=== PATIENT | female | born 1990 | race Hispanic/Latino ===

== ENCOUNTER 2017-08-10 23:39 | Emergency (ER) | payer OTHER ==
[2017-08-11 00:35] VITALS: BMI 19.5
[2017-08-11 01:15] LABS: HEMOGLOBIN 10.9 g/dL (12.0-16.0); MEAN CELL VOLUME 89.9 fl (81.0-99.0); MEAN CORPUSCULAR HGB CONC 34.5 g/dL (33.0-37.0); RBC 3.52 Mil/uL (3.80-5.20); RED CELL DISTRIBUTION WIDTH 12.3 % (11.5-14.5); WHITE BLOOD COUNT 8.2 K/uL (4.8-10.8)
[2017-08-11 09:53] VITALS: BP 119/72; PULSE 85; RESP 17; TEMP 97.8
== END 2017-08-11 05:23 | disposition home or self-care (01) ==
LOC: H.EROB2 23:39
DX: O26.92 Pregnancy related conditions, unspecified, second trimester (principal); R10.2 Pelvic and perineal pain; Z3A.26 26 weeks gestation of pregnancy; Z04.3 Encounter for examination and observation following other accident
CPT/HCPCS: 85027; 86850; 86900; 99283; J2792